=== PATIENT | female | born 1965 | race Caucasian/White ===

== ENCOUNTER 2016-10-09 11:29 | Inpatient (IN) | payer OTHER ==
[~2016-10-09] VITALS: Ht 165.1 cm; Wt 81.4 kg
[2016-10-09 12:10] LABS: HEMOGLOBIN 15.5 gm/dl (12.3-15.3); RED BLOOD COUNT 5.19 M/UL (4.00-5.10); WHITE BLOOD COUNT 5.1 K/UL (4.5-11.0)
[2016-10-09] MEDS ORDERED: ALPRAZOLAM0.5 MG PO (22:53)
[2016-10-09] MEDS ORDERED: LORTAB 5-325 M1 EACH PO ×2 (22:54→22:55)
[2016-10-09] MEDS ORDERED: COZAAR100 MG PO (22:55)
[2016-10-09] MEDS ORDERED: LEVOTHYROXINE137 MCG PO (22:56)
[2016-10-10 04:45] LABS: HEMOGLOBIN 13.4 gm/dl (12.3-15.3); RED BLOOD COUNT 4.6 M/UL (4.00-5.10); WHITE BLOOD COUNT 5.4 K/UL (4.5-11.0)
[2016-10-11 06:08] LABS: HEMOGLOBIN 12.7 gm/dl (12.3-15.3); RED BLOOD COUNT 4.32 M/UL (4.00-5.10)
[2016-10-11 06:09] LABS: WHITE BLOOD COUNT 13.2 K/UL (4.5-11.0)
[2016-10-11] MEDS ORDERED: MEDROL DOSEPAK 24 MG PO (14:15)
[2016-10-11] MEDS ORDERED: CEFUROXIME500 MG PO (14:18)
[2016-10-11] MEDS ORDERED: IPRAT-ALBUT 0.5-3 ML INH (14:21)
== END 2016-10-11 14:50 | disposition home or self-care (01) | DRG 189 ==
LOC: ER1 11:29 → MED SURG 4 21:54 → ZEROF 21:54 → MED SURG 4 21:54
PROVIDERS: Emergency Medicine; Physician Assistant Medical; ADMIT Internal Medicine
DX: J96.01 Acute respiratory failure with hypoxia (principal); J44.0 Chronic obstructive pulmonary disease with (acute) lower respiratory infection; N17.9 Acute kidney failure, unspecified; M62.82 Rhabdomyolysis; N39.0 Urinary tract infection, site not specified; J44.1 Chronic obstructive pulmonary disease with (acute) exacerbation; J20.9 Acute bronchitis, unspecified; I10 Essential (primary) hypertension; F41.9 Anxiety disorder, unspecified; F17.210 Nicotine dependence, cigarettes, uncomplicated; R05 Cough; B96.20 Unspecified Escherichia coli [E. coli] as the cause of diseases classified elsewhere; E89.0 Postprocedural hypothyroidism; Y83.6 Removal of other organ (partial) (total) as the cause of abnormal reaction of the patient, or of later complication, without mention of misadventure at the time of the procedure; Z88.6 Allergy status to analgesic agent; Z88.8 Allergy status to other drugs, medicaments and biological substances; Z79.891 Long term (current) use of opiate analgesic; Z79.899 Other long term (current) drug therapy; Z80.0 Family history of malignant neoplasm of digestive organs
CPT/HCPCS: 36415; 36600; 71010; 80048; 80053; 81001; 82550; 82553; 82803; 83605; 83735; 83874; 83880; 84484; 84703; 85025; 85027; 85610; 85730; 87040; 87077; 87086; 87186; 93005; 94640; 94664; 96361; 96374; 99285; G0378; J0696; J2920; J2930; J7030; J7050; Q9962

== ENCOUNTER → 2022-02-20 | Outpatient (CLI) | payer OTHER ==
[~2022-02-20] MED LIST: ALPRAZOLAM0.5 MG PO; CEFUROXIME500 MG PO; COZAAR100 MG PO; IPRAT-ALBUT 0.5-3 ML INH; LEVOTHYROXINE137 MCG PO; LORTAB 5-325 M1 EACH PO; MEDROL DOSEPAK 24 MG PO; NORCO 5-325 TA1 EACH PO; ZOFRAN ODT 4 MG4 MG PO
== END ==
LOC: HEART 5 11:15
DX: J44.9 Chronic obstructive pulmonary disease, unspecified (principal); R94.2 Abnormal results of pulmonary function studies
CPT/HCPCS: 94060; 94729